=== PATIENT | male | born 1940 | race Two or more races ===

== ENCOUNTER 2019-08-21 06:55 | Inpatient (IN) | payer OTHER ==
[~2019-08-21] VITALS: Ht 165.1 cm; Wt 86.2 kg
[~2019-08-21 06:55] MED LIST: GLIPIZIDE10 MG; LIPITOR40 MG; LISINOPRIL2.5 MG; METFORMIN HCL500 M1; SYNTHROID50 MCG; VYTORIN 10-20 M1 TAB
[2019-08-21] MEDS ORDERED: COZAAR25 MG (07:15)
[2019-08-21] MEDS ORDERED: ZETIA10 MG (07:15)
[2019-08-21] MEDS ORDERED: CRESTOR40 MG (07:15)
== END 2019-08-27 15:49 | disposition home or self-care (01) | DRG 727 ==
LOC: ER 06:55 → MEDJ 18:21 → MEDI 08-26 15:16
PROVIDERS: ADMIT Internal Medicine
PROC: BT4JZZZ Ultrasonography of Kidneys and Bladder (ICD-10-PCS; principal; 2019-08-21)
DX: N41.0 Acute prostatitis (principal); A41.51 Sepsis due to Escherichia coli [E. coli]; R65.20 Severe sepsis without septic shock; N17.8 Other acute kidney failure; N39.0 Urinary tract infection, site not specified; I13.0 Hypertensive heart and chronic kidney disease with heart failure and stage 1 through stage 4 chronic kidney disease, or unspecified chronic kidney disease; I11.9 Hypertensive heart disease without heart failure; E11.22 Type 2 diabetes mellitus with diabetic chronic kidney disease; E11.65 Type 2 diabetes mellitus with hyperglycemia; E03.8 Other specified hypothyroidism; N28.1 Cyst of kidney, acquired; N18.3 Chronic kidney disease, stage 3 (moderate); D72.828 Other elevated white blood cell count; Z79.4 Long term (current) use of insulin

== ENCOUNTER 2019-11-04 15:04 | Emergency (ER) | payer OTHER ==
[~2019-11-04] VITALS: Ht 175.3 cm; Wt 86.2 kg
[~2019-11-04 15:04] MED LIST changes: +COZAAR25 MG; +CRESTOR40 MG; +ZETIA10 MG
[2019-11-04] MEDS ORDERED: JANUVIA100 MG (15:21)
[2019-11-04] MEDS ORDERED: LANTUS SOL100 UNIT/1 (15:22)
== END 2019-11-04 19:34 | disposition home or self-care (01) ==
LOC: ER 15:04
DX: K29.70 Gastritis, unspecified, without bleeding (principal)

== ENCOUNTER 2023-08-28 16:10 | Inpatient (IN) | payer OTHER ==
[~2023-08-28] VITALS: Ht 165.1 cm; Wt 88.0 kg
[~2023-08-28 16:10] MED LIST changes: +JANUVIA100 MG; +LANTUS SOL100 UNIT/1
[2023-08-28 18:03] LABS: HEMATOCRIT 40.4 % (39.0-48.0); HEMOGLOBIN 13.4 g/dL (13-16.00); MEAN CORPUSCULAR HEMOGLOBIN 29.2 pg (27.00-32.0); MEAN CORPUSCULAR HGB CONC 33.2 g/dl (32.0-36.0); PLATELET COUNT 150 K/uL (150-450); RED BLOOD COUNT 4.59 M/uL (4.00-6.00); RED CELL DISTRIBUTION WIDTH 14.5 % (11.5-14.5)
[2023-08-28 18:17] LABS: CALCIUM 9.3 mg/dL (8.5-10.1); CREATININE SERUM 1.84 mg/dL (0.70-1.30); GFR 35.57; POTASSIUM 4.07 mEq/L (3.5-5.1)
[2023-08-28 20:28] LABS: PH,URINE 5.5 (5.0-8.0); URINE APPEARANCE Cloudy; URINE BILIRRUBIN Negative (NEGATIVE); URINE BLOOD Moderate; URINE COLOR Dark Yellow; URINE GLUCOSE Negative (NEGATIVE); URINE LEUKOCYTE Moderate; URINE NITRATE Negative
[2023-08-28 20:31] LABS: URINE BACTERIA 200.3 uL (0.0-1933); URINE EPITHELIAL CELLS 8.1 uL (0.0-38.8); URINE RBC 63.8 uL (0.0-20.8); URINE WBC 1273.8 uL (0.0-23.2)
[2023-08-28 20:52] LABS: URINE PROTEIN 100 (NEGATIVE)
[2023-08-29 00:06] LABS: ABG PH 7.428 (7.35-7.45); ABG PO2 76.2 mmHg (80-100); ABG pCO2 33.7 mmHg (35-45); BASE EXCESS -1.8 mmol/l; BICARBONATE 21.7 mmol/l (23-25); SaO2 95.4 %; Tco2 22.8 mmol/l
[2023-08-29 01:42] LABS: allen test SATISFACTORY; puncture site RADIAL RIGHT
[2023-08-29 01:43] LABS: INR 1.12; PARTIAL THROMBOPLASTIN TIME 31.1 SECONDS (22.0-34.0); PROTHROMBIN TIME 11.7 SECONDS (9.0-11.5)
[2023-08-29 01:45] LABS: o2 21 %
[2023-08-29 11:45] LABS: HEMATOCRIT 38.6 % (39.0-48.0); HEMOGLOBIN 12.4 g/dL (13-16.00); MEAN CELL VOLUME 88.4 fL (80.0-100.00); MEAN CORPUSCULAR HEMOGLOBIN 28.4 pg (27.00-32.0); MEAN CORPUSCULAR HGB CONC 32.1 g/dl (32.0-36.0); PLATELET COUNT 136 K/uL (150-450); RED BLOOD COUNT 4.36 M/uL (4.00-6.00); RED CELL DISTRIBUTION WIDTH 14.5 % (11.5-14.5)
[2023-08-29 11:55] LABS: ALBUMIN 3.5 gm/dL (3.4-5.0); BILIRUBIN TOTAL 1.19 mg/dL (0.3-1.2); CALCIUM 8.5 mg/dL (8.5-10.1); CREATININE SERUM 1.48 mg/dL (0.70-1.30); GFR 45.73; GLOBULINA 3.3 G/DL (2.4-3.5); MAGNESIUM 1.8 mg/dL (1.8-2.4); PHOSPHOROUS 2.1 mg/dL (2.5-4.9); POTASSIUM 4.01 mEq/L (3.5-5.1); TOTAL PROTEIN 6.8 gm/dL (6.4-8.2)
[2023-08-30 06:48] LABS: HEMATOCRIT 36.7 % (39.0-48.0); HEMOGLOBIN 12.5 g/dL (13-16.00); MEAN CELL VOLUME 86.7 fL (80.0-100.00); MEAN CORPUSCULAR HEMOGLOBIN 29.5 pg (27.00-32.0); PLATELET COUNT 137 K/uL (150-450); RED BLOOD COUNT 4.23 M/uL (4.00-6.00); RED CELL DISTRIBUTION WIDTH 14.7 % (11.5-14.5)
[2023-08-30 07:52] LABS: ALBUMIN 3.2 gm/dL (3.4-5.0); BILIRUBIN TOTAL 1.25 mg/dL (0.3-1.2); CALCIUM 8.3 mg/dL (8.5-10.1); CREATININE SERUM 1.62 mg/dL (0.70-1.30); GFR 41.2; GLOBULINA 3.2 G/DL (2.4-3.5); POTASSIUM 4.46 mEq/L (3.5-5.1); TOTAL PROTEIN 6.4 gm/dL (6.4-8.2)
[2023-08-30 07:54] LABS: PROSTATIC SPECIFIC ANTIGEN 17.4 NG/ML (0.010-4.00)
[2023-08-31 06:39] LABS: HEMATOCRIT 37.3 % (39.0-48.0); HEMOGLOBIN 12.3 g/dL (13-16.00); MEAN CORPUSCULAR HEMOGLOBIN 29.1 pg (27.00-32.0); PLATELET COUNT 155 K/uL (150-450); RED BLOOD COUNT 4.24 M/uL (4.00-6.00); RED CELL DISTRIBUTION WIDTH 14.4 % (11.5-14.5)
[2023-08-31 06:45] LABS: ALBUMIN 3.2 gm/dL (3.4-5.0); BILIRUBIN TOTAL 0.76 mg/dL (0.3-1.2); CALCIUM 8.4 mg/dL (8.5-10.1); CREATININE SERUM 1.32 mg/dL (0.70-1.30); GFR 52.19; GLOBULINA 3.2 G/DL (2.4-3.5); POTASSIUM 4.49 mEq/L (3.5-5.1); TOTAL PROTEIN 6.4 gm/dL (6.4-8.2)
[2023-08-31] MEDS ORDERED: TAMS0.4C PO (12:07)
[2023-08-31] MEDS ORDERED: COZAAR50 MG PO (12:08)
[2023-08-31] MEDS ORDERED: AMLODIPINE BESYL5 MG PO (12:08)
[2023-08-31] MEDS ORDERED: ST. JOSEPH ASPI81 M2 PO (12:09)
[2023-08-31] MEDS ORDERED: LEVOTHYROXINE112 MCG PO (12:09)
[2023-08-31] MEDS ORDERED: LEVOFLOXACIN500 MG PO (12:11)
[2023-08-31] MEDS ORDERED: PROBIOTIC1 EAC2 PO (12:11)
[2023-08-31] MEDS ORDERED: PEPCID AC20 MG PO (12:12)
== END 2023-08-31 13:03 | disposition home or self-care (01) | DRG 872 ==
LOC: ER 16:11 → MEDI 22:03
PROVIDERS: Emergency Medicine; General Practice; Student in an Organized Health Care Education/Training Program; ADMIT Internal Medicine; ATTEND Internal Medicine
PROC: B020ZZZ Computerized Tomography (CT Scan) of Brain (ICD-10-PCS; principal; 2023-08-28)
PROC: BW21ZZZ Computerized Tomography (CT Scan) of Abdomen and Pelvis (ICD-10-PCS; 2023-08-28)
PROC: B246ZZZ Ultrasonography of Right and Left Heart (ICD-10-PCS; 2023-08-29)
DX: A41.9 Sepsis, unspecified organism (principal); N39.0 Urinary tract infection, site not specified; N41.0 Acute prostatitis; N17.9 Acute kidney failure, unspecified; I31.39 Other pericardial effusion (noninflammatory); R56.9 Unspecified convulsions; E11.65 Type 2 diabetes mellitus with hyperglycemia; I12.9 Hypertensive chronic kidney disease with stage 1 through stage 4 chronic kidney disease, or unspecified chronic kidney disease; E11.22 Type 2 diabetes mellitus with diabetic chronic kidney disease; N18.9 Chronic kidney disease, unspecified; E03.9 Hypothyroidism, unspecified; B96.29 Other Escherichia coli [E. coli] as the cause of diseases classified elsewhere; Z74.01 Bed confinement status; Z79.4 Long term (current) use of insulin